=== PATIENT | male | born 1985 | race Caucasian/White ===

== ENCOUNTER 2017-11-03 19:00 | Emergency (ER) | payer SELFPAY ==
[~2017-11-03] VITALS: Ht 185.4 cm; Wt 75.7 kg
[2017-11-03 19:03] VITALS: BP 194/99; PULSE 72; RESP 18; TEMP 98.6; O2SAT 98
--- NOTE | 2017-11-03 19:27 | PD ---
HPI Chief Complaint: Oral / Dental Pain or Problem Time Seen by Provider: 19:27 Travel History International Travel<30 days: No Contact w/Intl Traveler<30days: No Traveled to known affect area: No History of Present Illness HPI 31-year-old male came to the emergency room with history of tooth infection and facial swelling for past 2 days. Patient says he has chronic gum issues and has had multiple infections in the past. He has been diagnosed with dental abscess and usually with penicillin he is able to get rid of the infection. Patient has been in [employer] for past few months on a job and is trying to get a dentist. He has also been taking Advil/ibuprofen at home for the pain. Vital signs were stable. He is otherwise a relatively healthy person. Patient drove himself here. [facility] Past Medical History Narrative Medical List of his past medical, surgical, social and family history reviewed from the nursing note. Medical History: Denies Significant Hx Diminished Hearing: No Influenza Vaccination: No ?: Not Past Surgical History Surgical History: No Previous Surgery Social History Alcohol Use: Yes (weekends) Tobacco Use: Yes (1ppd) Substance Use: Yes (pot) Allergies-Medications (Allergen,Severity, Reaction): Coded Allergies: No Known Allergies (Unverified , 11/03/17) Comments No known drug allergies. Reported Meds & Prescriptions Reported Meds & Active Scripts Active Ibuprofen 600 Mg Tab 600 Mg PO Q6H PRN Penicillin V Potassium 500 Mg Tab 500 Mg PO Q8H 10 Days Narrative Medication List of his home medications reviewed from the nursing note. Review of Systems Except as stated in HPI: all other systems reviewed are Neg HENT: Positive: Dental Difficulties Physical Exam Narrative GENERAL: Awake, alert, moderate to SKIN: Focused skin assessment warm/dry. HEAD: Atraumatic. Normocephalic. EYES: Pupils equal and round. No scleral icterus. No injection or drainage. ENT: No nasal bleeding or discharge. Mucous membranes pink and moist. Facial swelling, extremely poor dental condition with caries all the way down to the gum. There is gingivobuccal swelling opposite left lower premolar and first and second molars. This is tender to touch. No fluctuance. NECK: Trachea midline. No JVD. CARDIOVASCULAR: Regular rate and rhythm. No murmur appreciated. RESPIRATORY: No accessory muscle use. Clear to auscultation. Breath sounds equal bilaterally. GASTROINTESTINAL: Abdomen soft, non-tender, nondistended. Hepatic and splenic margins not palpable. MUSCULOSKELETAL: No obvious deformities. No clubbing. No cyanosis. No edema. NEUROLOGICAL: Awake and alert. No obvious cranial nerve deficits. Motor grossly within normal limits. Normal speech. PSYCHIATRIC: Appropriate mood and affect; insight and judgment normal. Data Data Last Documented VS Vital Signs Date Time Temp Pulse Resp B/P (MAP) Pulse Ox O2 Delivery O2 Flow Rate FiO2 11/03/17 19:03 98.6 72 18 194/99 (130) 98 Orders Orders Penicillin V Potassium (Veetids) (11/03/17 19:45) Ed Discharge Order (11/03/17 19:38) [facility] Medical Decision Making Medical Screen Exam Complete: Yes Emergency Medical Condition: Yes Medical Record Reviewed: Yes Differential Diagnosis Dental abscess, dentalgia Narrative Course 7:44 PM patient was given a dose of penicillin here. Since he took ibuprofen before coming in I am not giving another dose and since he is driving himself home he will not get any narcotic here. I am comfortable discharging him home on prescriptions. He has been strongly recommended to follow-up with a dentist. Procedures EKG Prior to Arrival: No Diagnosis Primary Impression: Dental abscess Additional Impression: Dentalgia Additional Instructions: Please follow-up with a dentist. Take the medication as per the prescription direction. Return to the ER if condition worsens any other new concerns. Use salt water mouth wash which will help the antibiotic work better. Med/Other Pt SpecificInfo: Prescription(s) given Scripts Ibuprofen (Ibuprofen) 600 Mg Tab 600 MG PO Q6H Y for Pain/Inflammation, #40 TAB 0 Refills Prov: Cinthya Donnelly MD 11/03/17 Penicillin V Potassium (Penicillin V Potassium) 500 Mg Tab 500 MG PO Q8H for Infection for 10 Days, #30 TAB 0 Refills Prov: Cinthya Donnelly MD 11/03/17 Disposition: 01 DISCHARGE HOME Condition: Stable Cinthya Donnelly MD Nov 03, 2017 19:27
[2017-11-03] MEDS ORDERED: PENI500T PO (19:40)
[2017-11-03] MEDS ORDERED: IBUP-232 PO (19:40)
[2017-11-03] MEDS ORDERED: PENICILLIN V POTASSIUM 500 MG TAB PO ONE (19:45)
== END 2017-11-03 20:42 | disposition home or self-care (01) ==
LOC: PHEFT 19:00
DX: K04.7 Periapical abscess without sinus (principal); K08.89 Other specified disorders of teeth and supporting structures; F17.200 Nicotine dependence, unspecified, uncomplicated; F12.90 Cannabis use, unspecified, uncomplicated
CPT/HCPCS: 99283